=== PATIENT | male | born 1965 | race Caucasian/White ===

== ENCOUNTER 2018-10-04 09:08 | Emergency (ER) | payer OTHER ==
[2018-10-04] MEDS ORDERED: Adacel (T-DAP) 0.5 ML SYRINGE ONE (09:54)
== END 2018-10-04 10:00 | disposition home or self-care (01) ==
LOC: BURERS 09:08
DX: S01.511A Laceration without foreign body of lip, initial encounter (principal); F17.220 Nicotine dependence, chewing tobacco, uncomplicated; W22.8XXA Striking against or struck by other objects, initial encounter
CPT/HCPCS: 12013; 90715